=== PATIENT | male | born 1990 | race Caucasian/White ===

== ENCOUNTER 2022-06-05 11:01 | Outpatient (CLI) | payer OTHER, SELFPAY ==
[2022-06-05 21:40] LABS: Chloride* 106 mmol/L (96-114)
[2022-06-05 21:41] LABS: Potassium* 5.2 mmol/L (3.6-5.1); Sodium* 141 mmol/L (135-149)
[2022-06-05 21:43] LABS: Aspartate Amino Transferase* 43 U/L (12-35); Bilirubin Total* 0.6 mg/dL (0.1-1.5); Blood Urea Nitrogen* 23 mg/dL (5-24); Carbon Dioxide* 27 mmol/L (20-32); Cholesterol* 295 mg/dL (90-199); Creatinine* 1.1 mg/dL (0.5-1.5); Estimated Glomerular Filt Rate 91 ml/min; Total Protein* 7.7 g/dL (6.0-8.3)
[2022-06-05 21:44] LABS: Alanine Aminotransferase* 31 U/L (4-50); Alkaline Phosphatase* 76 U/L (40-150); Calcium* 10.6 mg/dL (8.4-10.6); Glucose* 87 mg/dL (60-115); HDL Cholesterol* 84 mg/dL (>=40); LDL Cholesterol Calculated 201 mg/dL (<100); Triglycerides* 48 mg/dL (40-149)
== END 2022-06-05 11:02 | disposition home or self-care (01) ==
PROVIDERS: PCP Family Medicine; Visit Provider Family Medicine
DX: Z00.00 Encounter for general adult medical examination without abnormal findings (principal); S81.802A Unspecified open wound, left lower leg, initial encounter; Z13.6 Encounter for screening for cardiovascular disorders
CPT/HCPCS: 80053; 80061